=== PATIENT | male | born 1985 | race Caucasian/White ===

== ENCOUNTER 2025-03-16 22:30 | Emergency (ER) | payer MEDICAID, MEDICARE, OTHER ==
[~2025-03-16] VITALS: Ht 180.3 cm; Wt 89.4 kg
[2025-03-16 23:03] VITALS: BP 138/108; TEMP 98.5
[2025-03-16] MEDS ORDERED: predniSONE 20 MG TABLET ONE (23:05)
[2025-03-16] MEDS: IPRATROPIUM NEB FS 0.5 MG/2.5 ML AMPUL.NEB NEB ONE (23:06)
[2025-03-16] MEDS: ALBUTEROL FS 2.5 MG/3 ML VIAL.NEB NEB ONE (23:06)
[2025-03-16] MEDS: predniSONE 20 MG TABLET PO ONE (23:06)
[2025-03-16] MEDS ORDERED: PRED20TA PO (23:09)
[2025-03-16] MEDS ORDERED: ALBU8.5H8 INH (23:09)
[2025-03-16] MEDS ORDERED: IPRATROPIUM NEB FS 0.5 MG/2.5 ML AMPUL.NEB ONE (23:09)
[2025-03-16] MEDS ORDERED: ALBUTEROL FS 2.5 MG/3 ML VIAL.NEB ONE (23:09)
[2025-03-16 23:11] VITALS: O2SAT 92
[2025-03-16 23:26] VITALS: O2SAT 98
== END 2025-03-16 23:42 | disposition home or self-care (01) ==
LOC: ER 22:32
DX: J45.901 Unspecified asthma with (acute) exacerbation (principal); F17.200 Nicotine dependence, unspecified, uncomplicated; Z60.2 Problems related to living alone
CPT/HCPCS: 99283; 99406; 94640; J7512